=== PATIENT | male | born 1955 | race Caucasian/White ===

== ENCOUNTER 2020-10-14 19:31 | Inpatient (IN) | payer MEDICARE, MEDICAID ==
[~2020-10-14] VITALS: Ht 182.9 cm; Wt 129.3 kg
[~2020-10-14 19:31] MED LIST: BENTYL 10MG CAP10 MG PO; CARDIZEM CD120 MG PO; FIBERCON625 MG PO; GABAPENTIN600 MG PO; IMDUR ER TAB 3030 MG PO; IMODIUM CAP 2 MG2 MG PO; MESTINON60 MG PO; PLAVIX75 MG PO; SECTRAL CAP 20200 MG PO; ULTRAM50 MG PO; VITAMIN B-121000 MC2 SL; VITAMIN D250000 UNIT PO; VOLTAREN EC 7575 MG PO
[2020-10-14 19:54] LABS: HEMOGLOBIN 11.5 gm/dl (14.0-17.5); RED BLOOD COUNT 3.88 M/UL (4.20-5.50); WHITE BLOOD COUNT 8.9 K/UL (4.5-11.0)
[2020-10-15 04:59] LABS: RED BLOOD COUNT 3.69 M/UL (4.20-5.50); WHITE BLOOD COUNT 7.1 K/UL (4.5-11.0)
[2020-10-15] MEDS ORDERED: MESTINON60 MG PO (09:32)
[2020-10-15] MEDS ORDERED: VITAMIN B-121000 MC2 SL (11:05)
[2020-10-15] MEDS ORDERED: LOPERAMIDE2 MG PO (11:05)
[2020-10-15] MEDS ORDERED: DRISDOL1250 MCG PO (11:05)
[2020-10-15] MEDS ORDERED: HYDROCHLOROTHIA25 MG PO (11:06)
[2020-10-15] MEDS ORDERED: ULTRAM50 MG PO (11:06)
[2020-10-15] MEDS ORDERED: BENTYL 20MG TAB20 MG PO (11:06)
[2020-10-15] MEDS ORDERED: NEURONTIN600 MG PO (11:07)
[2020-10-15] MEDS ORDERED: ASPIRIN EC81 MG PO (11:07)
[2020-10-15] MEDS ORDERED: ACEBUTOLOL HCL200 MG PO (11:07)
[2020-10-15] MEDS ORDERED: ZESTRIL5 MG PO (11:08)
[2020-10-15] MEDS ORDERED: VOLTAREN EC 7575 MG PO (11:08)
[2020-10-15] MEDS ORDERED: MESTINON TAB 6060 MG PO (11:37)
[2020-10-15] MEDS ORDERED: MULTIVITAMIN1 EACH PO (11:40)
[2020-10-16 03:48] LABS: HEMOGLOBIN 12.5 gm/dl (14.0-17.5); RED BLOOD COUNT 4.25 M/UL (4.20-5.50); WHITE BLOOD COUNT 7.1 K/UL (4.5-11.0)
[2020-10-16 04:12] LABS: BUN/CREATININE RATIO 27 (0-10)
[2020-10-17 04:37] LABS: HEMOGLOBIN 13.1 gm/dl (14.0-17.5); RED BLOOD COUNT 4.46 M/UL (4.20-5.50)
[2020-10-17 04:42] LABS: WHITE BLOOD COUNT 10.1 K/UL (4.5-11.0)
[2020-10-17 04:54] LABS: BUN/CREATININE RATIO 34 (0-10)
[2020-10-18 04:33] LABS: HEMOGLOBIN 13.2 gm/dl (14.0-17.5); RED BLOOD COUNT 4.49 M/UL (4.20-5.50); WHITE BLOOD COUNT 10.2 K/UL (4.5-11.0)
[2020-10-18 04:52] LABS: BUN/CREATININE RATIO 41 (0-10)
[2020-10-18] MEDS ORDERED: VOLTAREN EC 7575 MG PO (18:54)
[2020-10-19 05:47] LABS: RED BLOOD COUNT 4.41 M/UL (4.20-5.50); WHITE BLOOD COUNT 11.5 K/UL (4.5-11.0)
[2020-10-19 06:06] LABS: BUN/CREATININE RATIO 43 (0-10)
[2020-10-20 05:09] LABS: HEMOGLOBIN 13.4 gm/dl (14.0-17.5); RED BLOOD COUNT 4.54 M/UL (4.20-5.50); WHITE BLOOD COUNT 13.9 K/UL (4.5-11.0)
[2020-10-20 05:39] LABS: BUN/CREATININE RATIO 49 (0-10)
[2020-10-20 20:11] LABS: ORGANISM ID Not indicated. (.); SPECIMEN SOURCE Urine (.); STREPTOCOCCUS PNEUMONIAE AG Negative (Negative)
[2020-10-21 05:12] LABS: HEMOGLOBIN 14.3 gm/dl (14.0-17.5); RED BLOOD COUNT 4.86 M/UL (4.20-5.50)
[2020-10-21 05:49] LABS: BUN/CREATININE RATIO 51 (0-10)
[2020-10-22 05:19] LABS: BUN/CREATININE RATIO 52 (0-10)
[2020-10-23 02:08] LABS: ADENOVIRUS F 40/41 Not Detected (Negative); ASTROVIRUS Not Detected (Negative); CAMPYLOBACTER Not Detected (Negative); CLOSTRIDIUM DIFFICILE TOX A/B Not Detected (Negative); CRYPTOSPORIDIUM Not Detected (Negative); E.COLI 0157 Not Detected (Negative); ENTAMOEBA HISTOLYTICA Not Detected (Negative); ENTEROAGGREGATIVE E.COLI (EAEC Not Detected (Negative); ENTEROPATHOGENIC E.COLI (EPEC) Not Detected (Negative); ENTEROTOXIGENIC E.COLI (ETEC) Not Detected (Negative); GIARDIA LAMBLIA Not Detected (Negative); NOROVIRUS GI/GII Not Detected (Negative); PLESIOMONAS SHIGELLOIDES Not Detected (Negative); ROTOVIRUS A Not Detected (Negative); SALMONELLA Not Detected (Negative); SAPOVIRUS Not Detected (Negative); SHIG/ENTEROINVAS.ECOLI (EIEC) Not Detected (Negative); SHIGA-LIK TOX.PRO.E.COLI (STEC Not Detected (Negative); VIBRIO Not Detected (Negative); VIBRIO CHOLERAE Not Detected (Negative); YERSINIA ENTEROCOLITICA Not Detected (Negative)
[2020-10-23 05:36] LABS: HEMOGLOBIN 13.2 gm/dl (14.0-17.5); RED BLOOD COUNT 4.73 M/UL (4.20-5.50); WHITE BLOOD COUNT 13.6 K/UL (4.5-11.0)
[2020-10-23 05:52] LABS: BUN/CREATININE RATIO 38 (0-10)
[2020-10-24 04:58] LABS: HEMOGLOBIN 13.4 gm/dl (14.0-17.5); RED BLOOD COUNT 4.74 M/UL (4.20-5.50); WHITE BLOOD COUNT 13.5 K/UL (4.5-11.0)
[2020-10-24 05:25] LABS: BUN/CREATININE RATIO 52 (0-10)
[2020-10-26 05:52] LABS: BUN/CREATININE RATIO 56 (0-10)
[2020-10-28 05:12] LABS: HEMOGLOBIN 14.8 gm/dl (14.0-17.5); RED BLOOD COUNT 5.27 M/UL (4.20-5.50); WHITE BLOOD COUNT 11.3 K/UL (4.5-11.0)
[2020-10-28 05:36] LABS: BUN/CREATININE RATIO 67 (0-10)
[2020-10-29 05:40] LABS: HEMOGLOBIN 14.2 gm/dl (14.0-17.5); RED BLOOD COUNT 4.93 M/UL (4.20-5.50); WHITE BLOOD COUNT 12.1 K/UL (4.5-11.0)
[2020-10-29 06:01] LABS: BUN/CREATININE RATIO 72 (0-10)
[2020-10-30 08:13] LABS: HEMOGLOBIN 14.9 gm/dl (14.0-17.5); RED BLOOD COUNT 5.18 M/UL (4.20-5.50); WHITE BLOOD COUNT 13.9 K/UL (4.5-11.0)
[2020-10-30 08:24] LABS: BUN/CREATININE RATIO 52 (0-10)
[2020-10-31 05:34] LABS: HEMOGLOBIN 13.5 gm/dl (14.0-17.5); RED BLOOD COUNT 4.67 M/UL (4.20-5.50); WHITE BLOOD COUNT 11.4 K/UL (4.5-11.0)
[2020-10-31 05:50] LABS: BUN/CREATININE RATIO 49 (0-10)
[2020-11-01 05:00] LABS: HEMOGLOBIN 15.3 gm/dl (14.0-17.5)
[2020-11-01 05:07] LABS: RED BLOOD COUNT 5.42 M/UL (4.20-5.50); WHITE BLOOD COUNT 17.5 K/UL (4.5-11.0)
[2020-11-01 05:23] LABS: BUN/CREATININE RATIO 53 (0-10)
--- NOTE | 2020-11-02 07:52 | NUR ---
DISCUSSED COMFORT MEASURES WITH FAMILY. FAMILY DECIDED TO MAKE THE PT COMFORT CARE. TALKED TO DR. RUIZ AND GOT AN ORDER FOR COMFORT MEASURES.
== END 2020-11-02 08:23 | disposition expired | DRG 177 ==
LOC: ER1 19:31 → 2 EAST 20:06 → ER1 20:06 → CDU 20:06 → CCU 20:06 → CDU 10-15 16:11 → CCU 10-15 16:11 → 2 EAST 10-17 06:04 → CCU 10-17 06:04 → CDU 10-20 16:55 → 2 EAST 10-20 16:55 → CCU 11-02 08:23
PROVIDERS: Internal Medicine; Internal Medicine Pulmonary Disease; Preventive Medicine Occupational Medicine; Surgery; ADMIT Internal Medicine
PROC: 8E0ZXY6 Isolation (ICD-10-PCS; principal; 2020-10-14)
PROC: 3E0333Z Introduction of Anti-inflammatory into Peripheral Vein, Percutaneous Approach (ICD-10-PCS; 2020-10-14)
PROC: 5A09557 Assistance with Respiratory Ventilation, Greater than 96 Consecutive Hours, Continuous Positive Airway Pressure (ICD-10-PCS; 2020-10-14)
PROC: XW033E5 Introduction of Remdesivir Anti-infective into Peripheral Vein, Percutaneous Approach, New Technology Group 5 (ICD-10-PCS; 2020-10-15)
PROC: XW033G5 Introduction of Sarilumab into Peripheral Vein, Percutaneous Approach, New Technology Group 5 (ICD-10-PCS; 2020-10-15)
DX: U07.1 COVID-19 (principal); J12.82 Pneumonia due to coronavirus disease 2019; J80 Acute respiratory distress syndrome; A41.89 Other specified sepsis; J44.0 Chronic obstructive pulmonary disease with (acute) lower respiratory infection; N17.9 Acute kidney failure, unspecified; G70.00 Myasthenia gravis without (acute) exacerbation; G47.33 Obstructive sleep apnea (adult) (pediatric); M51.36 Other intervertebral disc degeneration, lumbar region; I25.10 Atherosclerotic heart disease of native coronary artery without angina pectoris; Z96.649 Presence of unspecified artificial hip joint; E78.5 Hyperlipidemia, unspecified; E66.9 Obesity, unspecified; E86.0 Dehydration; Z51.5 Encounter for palliative care; Z66 Do not resuscitate; Z96.653 Presence of artificial knee joint, bilateral; Z99.81 Dependence on supplemental oxygen; Z86.73 Personal history of transient ischemic attack (TIA), and cerebral infarction without residual deficits; Z95.1 Presence of aortocoronary bypass graft; Z90.49 Acquired absence of other specified parts of digestive tract; Z95.5 Presence of coronary angioplasty implant and graft; Z98.890 Other specified postprocedural states; Z87.891 Personal history of nicotine dependence; Z80.3 Family history of malignant neoplasm of breast; Z71.6 Tobacco abuse counseling; Z79.82 Long term (current) use of aspirin; Z79.899 Other long term (current) drug therapy; Z68.39 Body mass index [BMI] 39.0-39.9, adult
CPT/HCPCS: ECHO; 36415; 36600; 71045; 80048; 80053; 82550; 82553; 82728; 82803; 83605; 83615; 83690; 83735; 83874; 83880; 84100; 84132; 84484; 85025; 85379; 85384; 85652; 86140; 87070; 87081; 87086; 87205; 87278; 87507; 87899; 93005; 93306; 94640; 94660; 94664; 94760; 94761; 96374; 99285; A6212; C9113; G0378; J0360; J0456; J0692; J0696; J1100; J1650; J2060; J2270; J7030; J7050; J7070